=== PATIENT | male | born 1950 | race African-American/Black ===

== ENCOUNTER 2023-08-29 08:36 | Emergency (ER) | payer MEDICARE, OTHER ==
[~2023-08-29] VITALS: Ht 185.4 cm; Wt 105.0 kg
[~2023-08-29 08:36] MED LIST: ALLO100T PO; DABI75CA3 PO; WARFARIN
[2023-08-29 08:46] VITALS: O2SAT 98
[2023-08-29] MEDS ORDERED: ACET-2708 MT (11:01)
[2023-08-29 11:22] VITALS: BP 141/85; PULSE 75; RESP 16; TEMP 98.4
== END 2023-08-29 12:11 | disposition home or self-care (01) ==
LOC: ER 08:36
DX: M79.605 Pain in left leg (principal); Z98.890 Other specified postprocedural states; Z90.49 Acquired absence of other specified parts of digestive tract; Z68.30 Body mass index [BMI] 30.0-30.9, adult; X50.9XXA Other and unspecified overexertion or strenuous movements or postures, initial encounter; Y93.01 Activity, walking, marching and hiking; Y92.89 Other specified places as the place of occurrence of the external cause; Y99.8 Other external cause status
CPT/HCPCS: 93971; 99284